=== PATIENT | male | born 1980 | race Caucasian/White ===

== ENCOUNTER 2017-01-10 08:06 | Emergency (ER) | payer OTHER ==
[2017-01-10 10:02] LABS: HEMOGLOBIN 14.6 gm/dl (14.0-17.5); RED BLOOD COUNT 4.97 M/UL (4.20-5.50); WHITE BLOOD COUNT 7.6 K/UL (4.5-11.0)
[2017-01-10 11:24] LABS: BUN/CREATININE RATIO 18 (0-10)
== END 2017-01-10 12:38 | disposition home or self-care (01) ==
LOC: ER1 08:06
PROVIDERS: Emergency Medicine
DX: N45.1 Epididymitis (principal); R10.31 Right lower quadrant pain; I10 Essential (primary) hypertension; Z88.5 Allergy status to narcotic agent
CPT/HCPCS: 36415; 76870; 80053; 81001; 83690; 85025; 96365; 96375; 99284; J0696; J2270; J2405; J7030; J7050

== ENCOUNTER 2017-01-31 17:34 | Emergency (ER) | payer OTHER | END 2017-01-31 18:25 | disposition home or self-care (01) | LOC: ER1 17:34 | DX: S60.221A Contusion of right hand, initial encounter (principal); W22.03XA Walked into furniture, initial encounter; Z88.5 Allergy status to narcotic agent; Y93.89 Activity, other specified; Y92.009 Unspecified place in unspecified non-institutional (private) residence as the place of occurrence of the external cause | CPT/HCPCS: 29125; 73130; 99283 ==

== ENCOUNTER 2017-02-13 11:19 | Emergency (ER) | payer OTHER ==
[2017-02-13 12:03] LABS: HEMOGLOBIN 14.7 gm/dl (14.0-17.5); WHITE BLOOD COUNT 8.8 K/UL (4.5-11.0)
[2017-02-13 12:22] LABS: BUN/CREATININE RATIO 14 (0-10)
== END 2017-02-13 15:55 | disposition home or self-care (01) ==
LOC: ER1 11:19
PROVIDERS: Physician Assistant
DX: N13.2 Hydronephrosis with renal and ureteral calculous obstruction (principal); I10 Essential (primary) hypertension; Z88.5 Allergy status to narcotic agent
CPT/HCPCS: 36415; 80053; 81001; 83690; 85025; 96374; 96375; 96376; 99284; J1885; J2270; J2405

== ENCOUNTER 2020-11-18 22:37 | Emergency (ER) | payer OTHER ==
[~2020-11-18 22:37] MED LIST: BENTYL 20MG TAB20 MG PO; ZOFRAN4 MG PO
[2020-11-18 23:03] LABS: HEMOGLOBIN 16.9 gm/dl (14.0-17.5); RED BLOOD COUNT 5.62 M/UL (4.20-5.50); WHITE BLOOD COUNT 5.6 K/UL (4.5-11.0)
[2020-11-18 23:16] LABS: BUN/CREATININE RATIO 11 (0-10)
[2020-11-19] MEDS ORDERED: PHENERGAN 25 MG25 M1 PO (01:01)
[2020-11-19] MEDS ORDERED: ZOFRAN ODT 4 MG4 MG SL (01:01)
[2020-11-20] MEDS ORDERED: PROAIR HFA8.5 GM INH (18:07)
[2020-11-20] MEDS ORDERED: DOXYCYCLINE HY100 M2 PO (18:07)
[2020-11-20] MEDS ORDERED: ZOFRAN ODT 4 MG4 MG SL (18:07)
[2020-11-20] MEDS ORDERED: DECADRON6 MG PO (18:07)
== END 2020-11-19 01:07 | disposition home or self-care (01) ==
LOC: ER1 22:37
PROVIDERS: Emergency Medicine
DX: U07.1 COVID-19 (principal)
CPT/HCPCS: 0240U; 36415; 80053; 83690; 85025; 96374; 99284; J2405

== ENCOUNTER 2020-11-20 15:57 | Emergency (ER) | payer OTHER ==
[~2020-11-20 15:57] MED LIST changes: +PHENERGAN 25 MG25 M1 PO; +ZOFRAN ODT 4 MG4 MG SL
[2020-11-20 17:05] LABS: HEMOGLOBIN 15.7 gm/dl (14.0-17.5); RED BLOOD COUNT 5.19 M/UL (4.20-5.50); WHITE BLOOD COUNT 4.3 K/UL (4.5-11.0)
[2020-11-20 17:39] LABS: BUN/CREATININE RATIO 11 (0-10)
[2020-11-20] MEDS ORDERED: DECADRON6 MG PO (18:07)
[2020-11-20] MEDS ORDERED: PROAIR HFA8.5 GM INH (18:07)
[2020-11-20] MEDS ORDERED: ZOFRAN ODT 4 MG4 MG SL (18:07)
[2020-11-20] MEDS ORDERED: DOXYCYCLINE HY100 M2 PO (18:07)
== END 2020-11-20 21:54 | disposition home or self-care (01) ==
LOC: ER1 15:57
PROVIDERS: Emergency Medicine
DX: U07.1 COVID-19 (principal); I10 Essential (primary) hypertension; Z88.5 Allergy status to narcotic agent
CPT/HCPCS: 36415; 36600; 71045; 80053; 82550; 82553; 82803; 83874; 83880; 84484; 85025; 96374; 99285; J1100; Q9967

== ENCOUNTER 2022-04-02 06:09 | Emergency (ER) | payer OTHER ==
[~2022-04-02 06:09] MED LIST changes: +DECADRON6 MG PO; +DOXYCYCLINE HY100 M2 PO; +PROAIR HFA8.5 GM INH
[2022-04-02 08:23] LABS: HEMOGLOBIN 13.8 gm/dl (14.0-17.5); RED BLOOD COUNT 4.72 M/UL (4.20-5.50); WHITE BLOOD COUNT 12.2 K/UL (4.5-11.0)
[2022-04-02 08:46] LABS: BUN/CREATININE RATIO 13 (0-10)
== END 2022-04-02 11:25 | disposition home or self-care (01) ==
LOC: ER1 06:09
PROVIDERS: Emergency Medicine
DX: R07.89 Other chest pain (principal); R00.2 Palpitations; E86.0 Dehydration; R51.9 Headache, unspecified; R60.0 Localized edema; I10 Essential (primary) hypertension
CPT/HCPCS: 71045; 80053; 80307; 81001; 82550; 82553; 83735; 84439; 84443; 84484; 85025; 93005; 99285